=== PATIENT | female | born 1995 | race Caucasian/White ===

== ENCOUNTER 2022-06-23 11:18 | Outpatient (CLI) | payer OTHER, SELFPAY ==
[2022-06-23 09:54] LABS: Albumin* 4.7 g/dL (3.3-5.0)
[2022-06-23 09:55] LABS: Chloride* 106 mmol/L (96-114); Potassium* 3.8 mmol/L (3.6-5.1); Sodium* 140 mmol/L (135-149)
[2022-06-23 09:57] LABS: Aspartate Amino Transferase* 20 U/L (12-35); Bilirubin Total* 0.7 mg/dL (0.1-1.5); Carbon Dioxide* 27 mmol/L (20-32); Cholesterol* 147 mg/dL (90-199); Creatinine* 0.8 mg/dL (0.5-1.5); Estimated Glomerular Filt Rate 105 ml/min; Total Protein* 7.3 g/dL (6.0-8.3)
[2022-06-23 09:58] LABS: Alanine Aminotransferase* 17 U/L (4-35); Alkaline Phosphatase* 44 U/L (40-150); Blood Urea Nitrogen* 15 mg/dL (5-24); Calcium* 9.3 mg/dL (8.4-10.6); Glucose* 82 mg/dL (60-115); HDL Cholesterol* 63 mg/dL (>=50); LDL Cholesterol Calculated 70 mg/dL (<100); Triglycerides* 71 mg/dL (40-149)
== END 2022-06-23 11:19 | disposition home or self-care (01) ==
PROVIDERS: PCP Family Medicine; Visit Provider Family Medicine
DX: Z01.419 Encounter for gynecological examination (general) (routine) without abnormal findings (principal); Z13.6 Encounter for screening for cardiovascular disorders
CPT/HCPCS: 80053; 80061; 87491; 87591